=== PATIENT | female | born 1955 | race Caucasian/White ===

== ENCOUNTER 2016-07-29 15:13 | Emergency (ER) | payer OTHER ==
[~2016-07-29] VITALS: Ht 160 cm; Wt 81.6 kg
[2016-07-29 15:18] VITALS: BP 146/85
[2016-07-29] MEDS ORDERED: Solu-MEDROL 125mg Inj IVP ONE (15:45)
[2016-07-29] MEDS ORDERED: Morphine Sulfate 4mg/ml Inj IVP ONE (16:00)
[2016-07-29] MEDS: Ipratropium 0.02% Inh Soln 2.5ml UD HHN SCH ×3 (16:15→17:23)
[2016-07-29] MEDS: Albuterol ud Inhalation HHN SCH ×3 (16:15→17:23)
[2016-07-29 16:20] LABS: BASOPHILS % (AUTO) 0.7 % (0.0-2.0); EOSINOPHILS % (AUTO) 1.2 % (0.0-3.0); LYMPHOCYTES % (AUTO) 17.5 % (20.0-45.0); MEAN CORPUSCULAR HEMOGLOBIN 27.5 PG (27.0-31.0); MEAN CORPUSCULAR HGB CONC 32.1 G/DL (32.0-36.0); MEAN CORPUSCULAR VOLUME 86 FL (80-99); MEAN PLATELET VOLUME 6.7 FL (6.5-10.1); MONOCYTES % (AUTO) 8.1 % (1.0-10.0); NEUTROPHILS % (AUTO) 72.5 % (45.0-75.0); PLATELET COUNT 375 K/UL (150-450); RED BLOOD COUNT 4.66 M/UL (4.20-5.40); RED CELL DISTRIBUTION WIDTH 17.7 % (11.6-14.8); WHITE BLOOD COUNT 13.1 K/UL (4.8-10.8)
[2016-07-29 16:38] LABS: TROPONIN I < 0.30 ng/mL (<=0.30)
[2016-07-29 16:41] LABS: CALCIUM 9.5 mg/dL (8.6-10.2); GLOMERULAR FILTRATION RATE 56.5 mL/min (>60); POTASSIUM 3.6 mEQ/L (3.4-4.9); TOTAL PROTEIN 7.4 g/dL (6.6-8.7)
[2016-07-29 16:52] LABS: CKMB 1.5 ng/mL (< 3.8)
[2016-07-29] MEDS ORDERED: Ketorolac 30mg Inj IV ONE (17:15)
--- NOTE | 2016-07-29 17:34 | Diagnostic Imaging Report ---
Indication: SOB Technique: One view of the chest Comparison: none Findings: Heart is enlarged. There is chronic appearing generalized interstitial prominence. No focal airspace consolidation or pleural effusions. Impression: Cardiomegaly. No definite acute process
[2016-07-29 17:38] LABS: APPEARANCE,URINE SLIGHTLY CLOUDY; KETONES,URINE NEGATIVE (NEGATIVE); LEUKOCYTE ESTERASE ,URINE 3+ (NEGATIVE); NITRITE,URINE NEGATIVE (NEGATIVE); PH,URINE 7 (4.5-8.0); PROTEIN,URINE 2+ (NEGATIVE); UROBILINOGEN,URINE NORMAL MG/DL (0.0-1.0)
[2016-07-29 17:40] VITALS: BP 141/82
[2016-07-29 17:47] LABS: BACTERIA,URINE MODERATE /HPF; SQUAMOUS EPITHELIAL CELL,UR FEW /LPF (NONE/OCC); WBC,URINE TNTC /HPF (0 - 2)
--- NOTE | 2016-07-29 17:53 | Diagnostic Imaging Report ---
Indication: Pain, status post fall Technique: 2 views of the right hip Comparison: None Findings: Right hip hardware with a medullary cate and femoral neck nails seen reducing old right intertrochanteric/subtrochanteric fracture deformity. There is some lucency in the subtrochanteric region. Whether this represents old ununited fracture or acute reinjury is uncertain. The hardware appears intact. Heterotopic ossification is seen medially. No associated pelvic fracture. The hip joint space is preserved Impression: Evidence of prior surgical repair of right hip intertrochanteric/subtrochanteric fracture. Lucency in the subtrochanteric region, may reflect residua of prior injury, but acute injury not excludable. Correlation with any prior images may be useful. Findings discussed by phone with Dr. Penn in the emergency room at the time of interpretation
[2016-07-29] MEDS ORDERED: LEVAQUIN750 MG ORAL (18:24)
[2016-07-29] MEDS ORDERED: PREDNISONE20 MG ORAL (18:24)
[2016-07-29] MEDS ORDERED: NORCO 5-325 TA1 EACH ORAL (18:24)
[2016-07-29] MEDS ORDERED: IBUPROFEN600 MG ORAL (18:24)
[2016-07-29] MEDS ORDERED: ALBUTEROL SULF8.5 GM INH (18:24)
[2016-07-29] MEDS ORDERED: WHEELCHAIR1 EACH MC (19:14)
--- NOTE | 2016-07-29 19:36 | Emergency Room Report ---
History of Present Illness General Chief Complaint: Pain Source: EMS Present Illness HPI 60-year-old female presents to ED for evaluation. [facility] Patient is complaining of shortness of breath and right hip pain. States shortness of breath for the last few days with chest tightness. History of COPD. States she does not have a inhaler at home. Denies any fevers or chills. Denies cough. Denies chest pain. Patient is also complaining of right hip pain. Denies recent trauma. States that she had surgery to her right hip one month ago at [facility]. Notes having pain since discharge. Pain is a throbbing, 10 out of 10, radiating down the right leg. Worse with walking. Patient is able to bear weight. No other aggravating or relieving factors. Denies any other associated symptoms Allergies: Uncoded Allergies: METAL (Allergy, Unknown, 07/29/16) Patient History Past Medical History: COPD Past Surgical History: other - hip surgey Nursing Documentation-[facility] Past Medical History: No History, Except For Hx Hypertension: Yes Hx Asthma: Yes Review of Systems All Other Systems: negative except mentioned in HPI Physical Exam Vital Signs Date Time Temp Pulse Resp B/P Pulse Ox O2 Delivery O2 Flow Rate FiO2 07/29/16 15:00 97.5 64 16 160/98 98 Room Air 07/29/16 15:18 2.0 Sp02 EP Interpretation: reviewed, normal General Appearance: no apparent distress, alert, GCS 15, non-toxic Head: normocephalic Eyes: bilateral eye PERRL, bilateral eye normal inspection ENT: normal ENT inspection Neck: normal inspection Respiratory: chest non-tender, speaking full sentences, wheezing Cardiovascular #1: regular rate, rhythm, no edema Gastrointestinal: normal bowel sounds, non tender, soft, non-distended, no guarding, no rebound Rectal: deferred Genitourinary: no CVA tenderness Musculoskeletal: tender - R hip. surgical scar C/D/I. no erythema/induration. full ROM noted Neurologic: alert, oriented x3, responsive, motor strength/tone normal, sensory intact, speech normal Psychiatric: normal inspection Skin: normal inspection Lymphatic: normal inspection Medical Decision Making Diagnostic Impression: Primary Impression: Hip pain Qualified Codes: M25.551 - Pain in right hip Additional Impressions: COPD (chronic obstructive pulmonary disease) Qualified Codes: J44.9 - Chronic obstructive pulmonary disease, unspecified UTI (urinary tract infection) Qualified Codes: N39.0 - Urinary tract infection, site not specified ER Course Hospital Course 60-year-old female presents ED complaining of shortness of breath, wheezing. History of COPD. Complaining of right hip pain. Status post femur fracture repair one month ago Differential diagnoses include: pneumonia, bronchitis, COPD, hardware loosening. Clinical course Patient placed on stretcher. After initial history, physical exam reveals an elderly female in no acute distress. Wheezing noted. Patient has pain over the right hip. Full range of motion noted. No warmth or erythema. No obvious deformity. I ordered labs, IV fluids, pain meds, nebulizer treatments, chest x-ray. Right hip XR Labs reviewed-leukocytosis noted, hemoglobin/hematocrit stable, electrolytes okay, trop negative, UA + bacteria Chest x-ray shows no acute process R hip XR hardware in place. no acute process On reassessment breathing is improved. Pain is better. Patient will be discharged on crutches. Given prescription for wheelchair. Patient's instructed to followup with the orthopedic doctor who performed the surgery; she states she has not seen the doctor yet since the surgery. Diagnosis - hip pain, COPD, UTI Stable and discharged home with prescriptions for Motrin, [place], Levaquin, crutches, albuterol, prednisone. Instructed to followup with PMD. Return to ED if symptoms recur or worsen Labs Test 07/29/16 15:43 07/29/16 17:23 White Blood Count 13.1 K/UL (4.8-10.8) Red Blood Count 4.66 M/UL (4.20-5.40) Hemoglobin 12.8 G/DL (12.0-16.0) Hematocrit 39.9 % (37.0-47.0) Mean Corpuscular Volume 86 FL (80-99) Mean Corpuscular Hemoglobin 27.5 PG (27.0-31.0) Mean Corpuscular Hemoglobin Concent 32.1 G/DL (32.0-36.0) Red Cell Distribution Width 17.7 % (11.6-14.8) Platelet Count 375 K/UL (150-450) Mean Platelet Volume 6.7 FL (6.5-10.1) Neutrophils (%) (Auto) 72.5 % (45.0-75.0) Lymphocytes (%) (Auto) 17.5 % (20.0-45.0) Monocytes (%) (Auto) 8.1 % (1.0-10.0) Eosinophils (%) (Auto) 1.2 % (0.0-3.0) Basophils (%) (Auto) 0.7 % (0.0-2.0) Sodium Level 138 mEQ/L (135-145) Potassium Level 3.6 mEQ/L (3.4-4.9) Chloride Level 94 mEQ/L (98-107) Carbon Dioxide Level 27 mEQ/L (20-30) Anion Gap 17 (5-15) Blood Urea Nitrogen 9 mg/dL (7-23) Creatinine 1.0 mg/dL (0.5-0.9) Estimat Glomerular Filtration Rate 56.5 mL/min (>60) Glucose Level 99 mg/dL (74-106) Lactic Acid Level 0.90 mmol/L (0.66-2.22) Calcium Level 9.5 mg/dL (8.6-10.2) Total Bilirubin 0.3 mg/dL (0.0-1.2) Aspartate Amino Transf (AST/SGOT) 18 U/L (5-40) Alanine Aminotransferase (ALT/SGPT) 12 U/L (3-33) Alkaline Phosphatase 160 U/L (35-104) Total Creatine Kinase 70 U/L (26-140) Creatine Kinase MB 1.5 ng/mL (< 3.8) Creatine Kinase MB Relative Index 2.1 Troponin I < 0.30 ng/mL (<=0.30) Pro-B-Type Natriuretic Peptide 210 pg/mL (0-125) Total Protein 7.4 g/dL (6.6-8.7) Albumin 3.8 g/dL (3.5-5.2) Globulin 3.6 g/dL Albumin/Globulin Ratio 1.0 (1.0-2.7) Urine Color Yellow Urine Appearance Slightly cloudy Urine pH 7 (4.5-8.0) Urine Specific [place] 1.005 (1.005-1.035) Urine Protein 2+ (NEGATIVE) Urine Glucose (UA) Negative (NEGATIVE) Urine Ketones Negative (NEGATIVE) Urine Occult Blood 1+ (NEGATIVE) Urine Nitrite Negative (NEGATIVE) Urine Bilirubin Negative (NEGATIVE) Urine Urobilinogen Normal MG/DL (0.0-1.0) Urine Leukocyte Esterase 3+ (NEGATIVE) Urine RBC 2-4 /HPF (0 - 2) Urine WBC Tntc /HPF (0 - 2) Urine Squamous Epithelial Cells Few /LPF (NONE/OCC) Urine Bacteria Moderate /HPF (NONE) EKG Diagnostic Results Rate: normal Rhythm: NSR ST Segments: no acute changes ASA given to the pt in ED: No Rhythm Strip Diag. Results EP Interpretation: yes Rhythm: NSR, no PVC's, no ectopy Chest X-Ray Diagnostic Results EP Interpretation: No Findings: no consolidation, no effusion, no pneumothorax, no acute cardiopulmonary disease, other - cardiomegaly Number of Views: 1 Other X-Ray Diagnostic Results Other X-Ray Diagnostic Results : X-Ray Ordered: R hip XR EP Interpretation: No Findings: no fractures, no dislocation, no soft tissue swelling, other - R hip hardware in place. no acute fx Last Vital Signs Date Time Temp Pulse Resp B/P Pulse Ox O2 Delivery O2 Flow Rate FiO2 07/29/16 17:58 97.8 07/29/16 17:40 85 14 141/82 100 Room Air 07/29/16 15:18 2.0 Status: improved Disposition: HOME, SELF-CARE Condition: Stable Scripts Wheelchair (WHEELCHAIR) 1 Each Each 1 EACH , #1 Prov: LUKAS RHOADES M.D. 07/29/16 Hydrocodone Bit/Acetaminophen 5-325* (NORCO 5-325*) 1 Each Tablet 1 TAB ORAL Q6H Y for For Pain, #10 TAB 0 Refills Prov: LUKAS RHOADES M.D. 07/29/16 Ibuprofen* (MOTRIN*) 600 Mg Tablet 600 MG ORAL Q8H Y for For Pain, #30 TAB 0 Refills Prov: LUKAS RHOADES M.D. 07/29/16 Prednisone* (PREDNISONE*) 20 Mg Tablet 40 MG ORAL DAILY, #10 TAB Prov: LUKAS RHOADES M.D. 07/29/16 Albuterol Sulfate* (ALBUTEROL SULFATE MDI*) 8.5 Gm Hfa.aer.ad 2 PUFF INH Q6H, #1 EA 0 Refills Prov: LUKAS RHOADES M.D. 07/29/16 Levofloxacin* (LEVAQUIN*) 750 Mg Tablet 750 MG ORAL DAILY for 5 Days, TAB Prov: LUKAS RHOADES M.D. 07/29/16 Patient Instructions: Acute Bronchitis, [id number] LUKAS RHOADES M.D. Jul 29, 2016 19:36
[2016-07-29 19:46] VITALS: BP 135/85
[2016-07-29 21:46] VITALS: BP 131/81
[2016-07-29 21:49] VITALS: BP 131/81
--- NOTE | 2016-08-02 10:50 | Cardiology Report ---
APPROVED REPORT EKG Measurement Heart [id number] Sinus tachycardia Right atrial enlargement Right ventricular hypertrophy Right superior axis deviation Pulmonary disease pattern Inferior-posterior infarct, age undetermined Abnormal ECG
== END 2016-07-29 21:49 | disposition home or self-care (01) ==
LOC: EDBD 15:13 → EMR 15:56
DX: M25.551 Pain in right hip (principal); J44.9 Chronic obstructive pulmonary disease, unspecified; N39.0 Urinary tract infection, site not specified; J45.909 Unspecified asthma, uncomplicated; I10 Essential (primary) hypertension; I51.7 Cardiomegaly; Z98.890 Other specified postprocedural states
CPT/HCPCS: 36415; 71010; 73502; 80053; 81003; 82550; 82553; 83605; 83880; 84484; 85025; 87040; 87086; 93005; 94640; 94664; 96360; 96374; 96375; 99284; J1885; J2270; J2930